=== PATIENT | female | born 1960 | race Caucasian/White ===

== ENCOUNTER 2020-05-30 05:51 | Emergency (ER) | payer OTHER ==
[~2020-05-30] VITALS: Ht 162.6 cm; Wt 59.0 kg
[2020-05-30] MEDS ORDERED: LISI10TA29 PO (06:09)
[2020-05-30] MEDS ORDERED: HYDR-3980 PO (06:09)
[2020-05-30] MEDS ORDERED: AMLO5TAB4 PO (06:09)
[2020-05-30] MEDS ORDERED: FENT1PAT9 TD (06:09)
[2020-05-30] MEDS ORDERED: IV NORMAL SALINE 1000 ML BAG IV ONE (06:45)
[2020-05-30] MEDS ORDERED: TDAP DIPH,PERTUSS,TET VAC/PF 0.5 ML DISP.SYRIN IM ONE ×2 (06:45→07:51)
[2020-05-30] MEDS ORDERED: PIPERACILLIN SODIUM/TAZOBACTAM 3.375 G in IV DEXTROSE 5% 50 ML IV ONE (06:45)
[2020-05-30] MEDS ORDERED: VANCOMYCIN IV 1,000 MG in IV DEXTROSE 5% 250 ML IV ONE (06:45)
[2020-05-30] MEDS ORDERED: LIDOCAINE 1%-EPI 1:100,000 20 ML VIAL IJ ONE (07:00)
[2020-05-30 07:16] LABS: BASOPHILS # (AUTO) 0.1 K/uL (0.0-8.0); BASOPHILS % (AUTO) 0.5 % (0.0-2.0); EOSINOPHILS # (AUTO) 0.2 K/uL (0.0-0.7); EOSINOPHILS % (AUTO) 1.7 % (0.0-7.0); HEMATOCRIT 31.4 % (31.2-41.9); HEMOGLOBIN 10.2 g/dL (10.9-14.3); LYMPHOCYTES # (AUTO) 1.7 K/uL (20.0-40.0); LYMPHOCYTES % (AUTO) 14.2 % (20.5-51.5); MEAN CORPUSCULAR HEMOGLOBIN 29.9 uug (24.7-32.8); MEAN CORPUSCULAR HGB CONC 33 g/dL (32.3-35.6); MEAN CORPUSCULAR VOLUME 91.4 fL (75.5-95.3); MONOCYTES % (AUTO) 8.4 % (0.0-11.0); NEUTROPHILS # (AUTO) 8.9 K/uL (1.8-8.9); NEUTROPHILS % (AUTO) 75.2 % (38.5-71.5); PLATELET COUNT (AUTO) 460 K/uL (179-408); RED BLOOD CELL COUNT(AUTO) 3.43 MIL/uL (3.63-4.92); WHITE BLOOD COUNT (AUTO) 11.9 K/uL (3.8-11.8)
--- NOTE | 2020-05-30 07:24 | NUR ---
Dr Mills notified re: difficult IV insertion.
[2020-05-30 07:34] LABS: CREATININE 0.9 mg/dL (0.6-1.3); POTASSIUM 3.8 mmol/L (3.5-5.1)
[2020-05-30 07:47] LABS: BILIRUBIN,DIRECT 0.1 mg/dL (0.0-0.2); BILIRUBIN,TOTAL 0.4 mg/dL (0.2-1.0); TOTAL PROTEIN, SERUM 7.4 g/dL (6.4-8.2)
[2020-05-30] MEDS ORDERED: PIPERACILLIN/TAZOBACTAM/D5W 50 ML IV ONE (07:50)
[2020-05-30] MEDS ORDERED: LIDOCAINE 1%-EPI 1:100,000 20 ML VIAL ONE (07:50)
[2020-05-30] MEDS ORDERED: VANCOMYCIN IV 0 ML ONE (07:51)
[2020-05-30] MEDS ORDERED: NAPR-1164 PO (08:13)
[2020-05-30] MEDS ORDERED: CLIN300C12 PO (08:13)
[2020-05-30] MEDS ORDERED: SULF1TAB48 PO (08:13)
[2020-05-30] MEDS ORDERED: CLINDAMYCIN HCL 300 MG CAPSULE ONE (08:18)
[2020-05-30 08:19] LABS: *BILIRUBIN,URIN NEGATIVE (NEGATIVE); *BLOOD, URINE 3+ (NEGATIVE); *CLARITY,URINE TURBID (CLEAR); *KETONES,URINE 2+ (NEGATIVE); *UROBILINOGEN,URINE 0.2 E.U./dl (NORMAL); LEUKOCYTE ESTERASE ,URINE 3+ (NEGATIVE); NITRITE, URINE NEGATIVE (NEGATIVE); UGLUCOSE NEGATIVE (NEGATIVE)
[2020-05-30] MEDS ORDERED: CLINDAMYCIN 75 MG/5 ML PO ONE (08:30)
--- NOTE | 2020-05-30 08:33 | NUR ---
Patient does not wish to proceed with medical care recommended by Dr. Mills. Patient was given information related to possible complications, up to and including , which could occur as a result of leaving the hospital at this time. Patient verbalizes understanding & compliance of risks involved due to leaving against medical advice. Patient has signed AMA form.
[2020-05-30 09:07] LABS: *COLOR,URINE BROWN (YELLOW)
[2020-05-30 09:27] LABS: *AMPHETAMINE, URINE POSITIVE (NEGATIVE); *CANNABINOID, URINE NEGATIVE (NEGATIVE); *COCCAINE, URINE NEGATIVE (NEGATIVE); *OPIATE, URINE NEGATIVE (NEGATIVE); *PHENCYCLIDINE SCREEN,URINE NEGATIVE (NEGATIVE)
[2020-05-30 09:43] LABS: MUCUS,URINE NONE SEEN /LPF (0-FEW)
[2020-05-30 09:44] LABS: BACTERIA,URINE MANY /HPF (NONE SEEN); SQUAMOUS EPITHELIAL CELL,UR FEW /HPF (NONE SEEN)
[2020-05-30 09:47] LABS: WBC,URINE 80-100 /HPF (0-3)
== END 2020-05-30 08:34 | disposition left against medical advice (07) ==
LOC: ER 06:05
DX: L02.31 Cutaneous abscess of buttock (principal); N39.0 Urinary tract infection, site not specified; S31.813S Puncture wound without foreign body of right buttock, sequela; F15.10 Other stimulant abuse, uncomplicated; D47.3 Essential (hemorrhagic) thrombocythemia; N30.90 Cystitis, unspecified without hematuria; R00.0 Tachycardia, unspecified; D64.9 Anemia, unspecified; L02.416 Cutaneous abscess of left lower limb
CPT/HCPCS: 10060; 36415; 80048; 80076; 80307; 81001; 83605; 84145; 84484; 85025; 85730; 87040 ×2; 87070; 87086; 93005; 99284; J3490; 70030-TC; 87077; 90715; A4663; J2543; J3370; J7030